=== PATIENT | male | born 1995 | race Caucasian/White ===

== ENCOUNTER 2023-04-14 12:35 | Emergency (ER) | payer OTHER, SELFPAY ==
[2023-04-14 12:36] VITALS: BP 144/88; PULSE 101; RESP 16; TEMP 36.8; O2SAT 99; BMI 22.7
--- NOTE | 2023-04-14 14:17 | EX.ED.UPPERE ---
HPI History of Present Illness Chief Complaint: Upper Extremity Injury Detail of Chief Complaint: Paresthesias bilateral hands Informant: patient Onset/Context/Timing Onset: Days Context: Gradual Onset Timing: Waxes and wanes Narrative Narrative: Patient presents secondary to paresthesias of the bilateral hands. He states left hand seems to be affected more than the right. He does have some tingling sensation in his forearms as well. He denies any injury. He has not had any significant motor weakness. 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 PFSH PFSH Medical History no medical history no medical history Home Medications prednisone 20 mg tablet 40 mg (2 x 20 mg) PO DAILY #10 tabs 04/14/23 [Rx Last Taken Unknown] Allergy/AdvReac Type Severity Reaction Status Date / Time No Known Allergies Allergy Verified 04/14/23 12:36 Social History Smoking Status: Current some day smoker tobacco type: cigarettes ROS ROS ED Constitutional Constitutional ED: Denies chills or fever(s) Eyes Eyes: Denies discharge from eye(s) ENT ENT ED: Denies discharge from eye(s), rhinorrhea or sore throat Cardiovascular Cardiovascular: Denies chest pain or palpitations Respiratory/Chest Respiratory/Chest: Denies cough or dyspnea Gastrointestinal Gastrointestinal: Denies abdominal pain, nausea or vomiting Musculoskeletal Musculoskeletal: Denies back pain or extremity pain Integumentary Denies Abrasions or rash Neurologic Neurologic: Reports paresthesias; Denies headache(s) or weakness Psychiatric Psychiatric: Denies anxiety or depression Allergic/Immunologic Allergic/Immunologic ED: Denies lip swelling or urticaria EXAM Physical Exam Const Vital Signs: 04/14/23 12:36 Temperature 98.2 F Temperature Source Temporal Pulse Rate 101 H Respiratory Rate 16 Blood Pressure 144/88 H Blood Pressure Mean 106 Pulse Ox 99 Oxygen Delivery Method Room Air Positive well nourished and well developed General Appearance ED: well developed HEENT Reports moist mucous membranes Eyes EOMs intact bilaterally Chest Wall inspection of chest normal and palpation of chest normal Resp normal respiratory effort and clear to auscultation bilaterally Cardio regular rate and regular rhythm GI non-tender Palpation: soft Extremity Extremity Narrative: Hands warm to touch bilaterally. Motor strength is unremarkable. Patient does report decreased sensation to light touch. He has normal cap refill throughout. No tenderness with palpation throughout the forearms, elbows, or upper arms. Neuro oriented x3 Skin Lesions: no lesions Rashes: no rashes Trauma: no lacerations or abrasions MDM MDM MDM Narrative Medical decision making narrative: My suspicion is he has nerve irritation from the vibrating equipment that he holds at work. To be cautious we will check electrolytes to ensure no derangement there that would explain neuropathic symptoms. Lab Data Labs: Laboratory Results 04/14/23 14:19 Sodium 141 Potassium 3.9 Chloride 108 H Carbon Dioxide 28.0 Anion Gap 5 BUN 8 Creatinine 0.69 L Estim Creat Clear Calc 164.99 Est GFR (MDRD) Af Amer 177 Est GFR (MDRD) Non-Af 146 BUN/Creatinine Ratio 11.5 Glucose 107 H Calcium 9.0 Magnesium 2.0 Treatment and Re-Evaluation Narrative: Chemistry studies are unremarkable with normal potassium. Magnesium level is also normal. Patient be put on a 5-day burst of steroids to help calm nerve inflammation. I will refer him to Dr. Bagley if not improving for potential EMG test. Discharge Plan Triage Chief Complaint: Upper Extremity Injury ED Provider: Aleena Almendarez Dx/Rx/DC Orders Clinical Impression: Paresthesias Instructions: ED Paraesthesias Prescriptions: New prednisone 20 mg tablet 40 mg PO DAILY Qty: 10 0RF Stand Alone Forms: Work / School Excuse Primary Care Provider: Care Physician,No Primary Referrals: Hai Bagley MD [Non-Staff -Ordering Privileges] - 10-14 Days if not better Care Physician,No Primary [Primary Care Provider] -
[2023-04-14 14:37] LABS: Anion Gap 5 (5-15); BUN 8 mg/dL (7-18); BUN/Creat Ratio 11.5 RATIO (10-20); Chloride 108 mmol/L (98-107); Creatinine, Serum 0.69 mg/dL (0.70-1.30); EST Glomerular Filtration Rate 146 mL/min (>60); Est Glom Filt Rate - Afr Amer 177 mL/min (>60); Estimated Creatinine Clearance 164.99 ml/min; Glucose 107 mg/dL (74-106); Potassium 3.9 mmol/L (3.5-5.1); Sodium Level 141 mmol/L (136-145)
[2023-04-14 15:22] VITALS: BP 125/64; PULSE 64; RESP 14; TEMP 36.4; O2SAT 99
== END 2023-04-14 15:23 | disposition home or self-care (01) ==
PROVIDERS: Emergency Provider Emergency Medicine; Visit Provider Emergency Medicine
DX: R20.2 Paresthesia of skin (principal); F17.210 Nicotine dependence, cigarettes, uncomplicated
CPT/HCPCS: 80048; 83735; 99283; A4216

== ENCOUNTER 2024-12-05 14:30 | Inpatient (IN) | payer MEDICAID, SELFPAY ==
[2024-12-05 14:49] VITALS: BP 137/78; PULSE 104; RESP 18; TEMP 37; O2SAT 99; BMI 19.3
[2024-12-05 17:38] VITALS: BP 131/83; PULSE 104; RESP 18; TEMP 36.8; O2SAT 100
[2024-12-05 20:01] VITALS: BP 113/78; PULSE 95; RESP 16; O2SAT 100
[2024-12-05] MEDS: Senna/Docusate Sodium 1 Tablet PO (20:19)
[2024-12-05] MEDS: hydrOXYzine PAM 25 MG Capsule PO (20:31)
[2024-12-06 05:28] VITALS: BP 132/79; PULSE 90; RESP 16; TEMP 36.9; O2SAT 99
[2024-12-06 07:58] LABS: Hematocrit 33.7 % (40-54); Hemoglobin 11.5 g/dL (13.0-16.5); Mean Corp Hgb Conc 34.1 g/dL (32-36); Mean Corpuscular Volume 93.4 fL (80-94); Mean Platelet Vol. 7.8 fl (6.2-12.0); Platelet Count 543 K/mm3 (150-450); RBC Distribution Width CV 14.4 % (11.6-14.6); RBC Distribution Width SD 49.4 fl (35.1-43.9); Red Blood Count 3.61 M/mm3 (4.6-6.2); White Blood Count 7.3 K/mm3 (4.4-11.0)
[2024-12-06 08:26] LABS: AST(SGOT) 38 U/L (<=37); Alanine Aminotransfer ALT/SGPT 83 U/L (<=46); Albumin, Serum 4.0 g/dL (3.5-5.0); Alkaline Phosphatase 356 U/L (40-129); Anion Gap 13 (5-15); BUN 16 mg/dL (4-19); BUN/Creat Ratio 31.3 RATIO (10-20); Calcium,Total 9.7 mg/dL (7.6-11.0); Carbon Dioxide 26.4 mmol/L (21.0-32.0); Chloride 100 mmol/L (98-108); Estimated Creatinine Clearance 191.24 ml/min (50-250); Globulin 3.0 g/dL (2.2-4.2); Glucose 130 mg/dL (70-99); Magnesium 2.0 mg/dL (1.5-2.2); Potassium 3.9 mmol/L (3.3-5.1)
[2024-12-06] MEDS: Senna/Docusate Sodium 1 Tablet PO ×2 (09:21→21:42)
[2024-12-06] MEDS: hydrOXYzine PAM 25 MG Capsule PO (10:48)
[2024-12-06 11:15] VITALS: O2SAT 95
[2024-12-07 06:00] VITALS: BP 128/76; PULSE 71; RESP 16; TEMP 36.4; O2SAT 99; BMI 19.3
[2024-12-07 08:10] VITALS: O2SAT 95
[2024-12-07] MEDS: Senna/Docusate Sodium 1 Tablet PO ×2 (10:03→20:55)
[2024-12-07 17:51] VITALS: BP 126/83; PULSE 100; RESP 18; TEMP 36.6
[2024-12-07] MEDS: hydrOXYzine PAM 25 MG Capsule PO (23:22)
[2024-12-08 06:00] VITALS: BP 119/83; PULSE 94; RESP 16; TEMP 36.9; O2SAT 97
[2024-12-08 07:27] VITALS: O2SAT 99
[2024-12-08] MEDS: Senna/Docusate Sodium 1 Tablet PO (09:24)
[2024-12-08 17:47] VITALS: BP 119/75; PULSE 105; RESP 18; TEMP 37.1; O2SAT 99
[2024-12-08] MEDS: MELATONIN 10 MG TABLET 5 MG PO (20:38)
[2024-12-08] MEDS: hydrOXYzine PAM 25 MG Capsule PO (20:38)
[2024-12-09 06:00] VITALS: BP 124/83; PULSE 102; RESP 16; TEMP 36.8; O2SAT 98
[2024-12-09] MEDS: Nicotine (PBKC) 21 MG Patch TD ×2 (08:54→19:05)
[2024-12-09 16:56] VITALS: BP 116/75; PULSE 105; RESP 17; TEMP 37.1; O2SAT 99
[2024-12-09] MEDS: hydrOXYzine PAM 25 MG Capsule PO (20:07)
[2024-12-09] MEDS: MELATONIN 10 MG TABLET 5 MG PO (20:07)
[2024-12-10] MEDS: hydrOXYzine PAM 25 MG Capsule PO (04:34)
[2024-12-10 05:30] VITALS: BP 128/88; PULSE 97; RESP 18; TEMP 37.1; O2SAT 98
[2024-12-10] MEDS: Nicotine (PBKC) 21 MG Patch TD (08:00)
[2024-12-10 17:37] VITALS: BP 122/80; PULSE 107; RESP 16; TEMP 36.8; O2SAT 98
[2024-12-10] MEDS: Nicotine 4mg Gum (PBKC) 4 MG GUM PO ×3 (17:52→21:56)
[2024-12-10] MEDS: MELATONIN 10 MG TABLET 5 MG PO (21:49)
[2024-12-11] MEDS: Nicotine 4mg Gum (PBKC) 4 MG GUM PO ×6 (05:16→21:14)
[2024-12-11 05:42] VITALS: BP 124/85; PULSE 99; RESP 18; TEMP 37.1; O2SAT 98
[2024-12-11] MEDS: Nicotine (PBKC) 21 MG Patch TD (09:54)
[2024-12-11 17:15] VITALS: BP 108/74; PULSE 103; RESP 16; TEMP 36.9; O2SAT 98
[2024-12-11 20:20] VITALS: PULSE 102; RESP 16; O2SAT 98
[2024-12-11] MEDS: MELATONIN 10 MG TABLET 5 MG PO (21:14)
[2024-12-11] MEDS: hydrOXYzine PAM 25 MG Capsule PO (21:14)
[2024-12-12 06:00] VITALS: BP 119/76; PULSE 92; RESP 15; TEMP 36.7; O2SAT 98
[2024-12-12] MEDS: Nicotine 4mg Gum (PBKC) 4 MG GUM PO ×7 (06:00→23:06)
[2024-12-12] MEDS: Nicotine (PBKC) 21 MG Patch TD (08:25)
[2024-12-12 08:44] VITALS: PULSE 98; RESP 17; O2SAT 97
[2024-12-12] MEDS: hydrOXYzine PAM 25 MG Capsule PO ×2 (14:35→23:06)
[2024-12-12 16:49] VITALS: BP 110/72; PULSE 100; RESP 17; TEMP 36.7; O2SAT 96
[2024-12-12 19:50] VITALS: O2SAT 96
[2024-12-12] MEDS: MELATONIN 10 MG TABLET 5 MG PO (23:05)
[2024-12-13 05:12] VITALS: BP 117/78; PULSE 92; RESP 17; TEMP 36.8; O2SAT 97
[2024-12-13] MEDS: Nicotine 4mg Gum (PBKC) 4 MG GUM PO ×5 (05:15→20:27)
[2024-12-13] MEDS: Nicotine (PBKC) 21 MG Patch TD (07:35)
[2024-12-13 17:53] VITALS: BP 119/81; PULSE 101; RESP 16; TEMP 37; O2SAT 99
[2024-12-14] MEDS: Nicotine 4mg Gum (PBKC) 4 MG GUM PO ×6 (03:29→21:09)
[2024-12-14 03:32] VITALS: BP 133/95; PULSE 89; RESP 18; TEMP 36.9; O2SAT 98
[2024-12-14 06:00] VITALS: BMI 19.4
[2024-12-14] MEDS: Nicotine (PBKC) 21 MG Patch TD (09:07)
[2024-12-14] MEDS: hydrOXYzine PAM 25 MG Capsule PO (15:02)
[2024-12-14 18:00] VITALS: BP 119/66; PULSE 95; RESP 15; TEMP 36.4; O2SAT 99
[2024-12-14] MEDS: MELATONIN 10 MG TABLET 5 MG PO (21:47)
[2024-12-15] MEDS: Nicotine 4mg Gum (PBKC) 4 MG GUM PO ×4 (02:47→12:33)
[2024-12-15 06:00] VITALS: BP 128/85; PULSE 99; RESP 14; TEMP 36.9; O2SAT 98
[2024-12-15] MEDS: hydrOXYzine PAM 25 MG Capsule PO (09:26)
[2024-12-15] MEDS: Nicotine (PBKC) 21 MG Patch TD (09:27)
[2024-12-15 11:59] LABS: Barbiturate Urine NEGATIVE (< 200 ng/mL); Benzodiazepine Urine NEGATIVE (< 200 ng/mL); PCP Urine NEGATIVE (< 25 ng/mL); THC Urine NEGATIVE (< 50 ng/mL)
[2024-12-15 17:23] VITALS: BP 113/76; PULSE 106; RESP 16; TEMP 36.9; O2SAT 99
[2024-12-16 06:00] VITALS: BP 127/81; PULSE 94; RESP 16; TEMP 37; O2SAT 99
[2024-12-16 06:43] LABS: Hematocrit 36.7 % (40-54); Hemoglobin 12.0 g/dL (13.0-16.5); Mean Corp Hgb Conc 32.7 g/dL (32-36); Mean Corpuscular Volume 95.3 fL (80-94); Mean Platelet Vol. 8.3 fl (6.2-12.0); Platelet Count 405 K/mm3 (150-450); RBC Distribution Width CV 13.7 % (11.6-14.6); RBC Distribution Width SD 48.1 fl (35.1-43.9); Red Blood Count 3.85 M/mm3 (4.6-6.2); White Blood Count 6.6 K/mm3 (4.4-11.0)
[2024-12-16 06:58] LABS: AST(SGOT) 25 U/L (<=37); Alanine Aminotransfer ALT/SGPT 60 U/L (<=46); Albumin, Serum 4.1 g/dL (3.5-5.0); Alkaline Phosphatase 225 U/L (40-129); Anion Gap 11 (5-15); BUN 14 mg/dL (4-19); BUN/Creat Ratio 28.1 RATIO (10-20); Calcium,Total 10.1 mg/dL (7.6-11.0); Carbon Dioxide 28.0 mmol/L (21.0-32.0); Chloride 101 mmol/L (98-108); Estimated Creatinine Clearance 200.63 ml/min (50-250); Globulin 2.7 g/dL (2.2-4.2); Glucose 103 mg/dL (70-99); Magnesium 2.0 mg/dL (1.5-2.2); Potassium 4.1 mmol/L (3.3-5.1)
[2024-12-16] MEDS: Nicotine (PBKC) 21 MG Patch TD (07:40)
[2024-12-16 17:48] VITALS: BP 116/77; PULSE 104; RESP 16; TEMP 37; O2SAT 98
[2024-12-17 05:47] VITALS: BP 120/79; PULSE 83; RESP 17; TEMP 36.7
[2024-12-17] MEDS: Nicotine (PBKC) 21 MG Patch TD (10:48)
[2024-12-17] MEDS: buPROPion (XL) 150 MG TABLET.XL PO (10:48)
[2024-12-17 18:00] VITALS: BP 115/67; PULSE 78; RESP 18; TEMP 36.5; O2SAT 98
[2024-12-17] MEDS: Ammonium Lactate 225 gm Bottle 1 APPLIC TOPICAL (21:37)
[2024-12-18] MEDS: Ammonium Lactate 225 gm Bottle 1 APPLIC TOPICAL ×2 (05:47→22:57)
[2024-12-18 05:52] VITALS: BP 128/86; PULSE 94; RESP 17; TEMP 37.1; O2SAT 97
[2024-12-18] MEDS: Nicotine (PBKC) 21 MG Patch TD (08:12)
[2024-12-18] MEDS: buPROPion (XL) 150 MG TABLET.XL PO (08:12)
[2024-12-18 18:00] VITALS: BP 130/77; PULSE 91; RESP 16; TEMP 37.2; O2SAT 100
[2024-12-18] MEDS: MELATONIN 10 MG TABLET 5 MG PO (23:38)
[2024-12-18] MEDS: hydrOXYzine PAM 25 MG Capsule PO (23:52)
[2024-12-19 06:00] VITALS: BP 104/77; PULSE 97; RESP 16; TEMP 36.6; O2SAT 98
[2024-12-19] MEDS: Ammonium Lactate 225 gm Bottle 1 APPLIC TOPICAL ×2 (06:56→21:06)
[2024-12-19] MEDS: buPROPion (XL) 150 MG TABLET.XL PO (08:01)
[2024-12-19] MEDS: Nicotine (PBKC) 21 MG Patch TD (08:02)
[2024-12-19] MEDS: hydrOXYzine PAM 25 MG Capsule PO ×2 (13:51→21:05)
[2024-12-19 18:00] VITALS: BP 118/80; PULSE 96; RESP 17; TEMP 36.6; O2SAT 99
[2024-12-19] MEDS: MELATONIN 10 MG TABLET 5 MG PO (21:06)
[2024-12-19 21:50] LABS: Barbiturate Urine NEGATIVE (< 200 ng/mL); Benzodiazepine Urine NEGATIVE (< 200 ng/mL); PCP Urine NEGATIVE (< 25 ng/mL); THC Urine NEGATIVE (< 50 ng/mL)
[2024-12-20 05:05] VITALS: BP 114/77; PULSE 86; RESP 14; TEMP 36.8; O2SAT 98
[2024-12-20] MEDS: Nicotine (PBKC) 21 MG Patch TD (08:11)
[2024-12-20] MEDS: buPROPion (XL) 150 MG TABLET.XL PO (08:11)
[2024-12-21 03:07] LABS: HEPATITIS B SURFACE AG Negative (Negative); Hep C Antibodies Non Reactive (Non Reactive)
== END 2024-12-20 12:20 | disposition home or self-care (01) | DRG 862 ==
PROVIDERS: Anesthesiology Pain Medicine; Admitting Provider Family Medicine Geriatric Medicine; Referring Provider Family Medicine Geriatric Medicine; Visit Provider Internal Medicine
DX: S72.92XE Unspecified fracture of left femur, subsequent encounter for open fracture type I or II with routine healing (principal); M62.82 Rhabdomyolysis; S06.9X9D Unspecified intracranial injury with loss of consciousness of unspecified duration, subsequent encounter; S32.402D Unspecified fracture of left acetabulum, subsequent encounter for fracture with routine healing; F15.23 Other stimulant dependence with withdrawal; F32.89 Other specified depressive episodes; F10.11 Alcohol abuse, in remission; F17.210 Nicotine dependence, cigarettes, uncomplicated; F17.290 Nicotine dependence, other tobacco product, uncomplicated; F41.9 Anxiety disorder, unspecified; M62.838 Other muscle spasm; F09 Unspecified mental disorder due to known physiological condition; F90.9 Attention-deficit hyperactivity disorder, unspecified type; G47.00 Insomnia, unspecified; G47.10 Hypersomnia, unspecified; R74.01 Elevation of levels of liver transaminase levels; V89.2XXD Person injured in unspecified motor-vehicle accident, traffic, subsequent encounter; S82.001E Unspecified fracture of right patella, subsequent encounter for open fracture type I or II with routine healing; S82.201E Unspecified fracture of shaft of right tibia, subsequent encounter for open fracture type I or II with routine healing; S01.81XD Laceration without foreign body of other part of head, subsequent encounter; Z91.199 Patient's noncompliance with other medical treatment and regimen due to unspecified reason; R63.2 Polyphagia; Z68.1 Body mass index [BMI] 19.9 or less, adult; F14.20 Cocaine dependence, uncomplicated; G89.4 Chronic pain syndrome
CPT/HCPCS: 36415; 80053; 80074; 80307; 83735; 84100; 85027; 92507; 92523; 94668; 97110; 97112; 97116; 97129; 97130; 97162; 97167; 97530; 97535; 97542; 97802; 99406

== ENCOUNTER → 2024-12-22 | Outpatient (CLI) | payer MEDICAID, SELFPAY ==
[2024-12-22 12:04] LABS: Hematocrit 35.3 % (40-54); Hemoglobin 11.8 g/dL (13.0-16.5); Immature Granulocytes Count 0.030 X10^3/uL (0.0-0.0); Mean Corp Hgb Conc 33.4 g/dL (32-36); Mean Corpuscular Volume 94.4 fL (80-94); Mean Platelet Vol. 8.9 fl (6.2-12.0); NRBC Flagged by Analyzer 0 % (0-5); Platelet Count 366 K/mm3 (150-450); RBC Distribution Width CV 13.7 % (11.6-14.6); RBC Distribution Width SD 47.4 fl (35.1-43.9); Red Blood Count 3.74 M/mm3 (4.6-6.2); White Blood Count 6.5 K/mm3 (4.4-11.0)
[2024-12-22 13:09] LABS: AST(SGOT) 24 U/L (<=37); Alanine Aminotransfer ALT/SGPT 45 U/L (<=46); Albumin, Serum 4.3 g/dL (3.5-5.0); Alkaline Phosphatase 212 U/L (40-129); Bilirubin, Direct 0.18 mg/dL (0.00-0.30); Globulin 2.6 g/dL (2.2-4.2)
== END | disposition home or self-care (01) ==
LOC: VSLAB 10:09
PROVIDERS: PCP Family Medicine; Visit Provider Family Medicine
DX: R94.5 Abnormal results of liver function studies (principal); D64.9 Anemia, unspecified
CPT/HCPCS: 36415; 80076; 85025